=== PATIENT | female | born 1940 | race Caucasian/White ===

== ENCOUNTER 2021-01-10 09:48 | Outpatient (CLI) | payer MEDICARE, SELFPAY ==
--- NOTE | ~2021-01-10 | XR_ITS ---
XR shoulder RT min 2V 01/10/2021 10:09 Indication: Right shoulder pain Procedure: 4 views right shoulder Comparison: No prior studies for comparison. Findings: No fracture, subluxation or dislocation. There is anatomic alignment. Visualized lung paren chyma unremarkable. No soft tissue abnormality. No foreign bodies. Impression: 1: No significant bone or joint abnormality. Reviewed, dictated and finalized at location B. Impression: 1: No significant bone or joint abnormality.
== END 2021-01-10 09:49 | disposition home or self-care (01) ==
LOC: ANHIMG 09:54
DX: M79.601 Pain in right arm (principal)
CPT/HCPCS: 73030

== ENCOUNTER 2021-03-04 15:00 | Outpatient (RCR) | payer MEDICARE, SELFPAY ==
--- NOTE | 2020-12-26 09:42 | OTOPEVAL ---
OCCUPATIONAL THERAPY INITIAL EVALUATION 12/26/20 Gail presents to outpatient OT with right shoulder pain and bilateral hand pain that appears to be from chronic arthritic changes. She is very guarded with right shoulder ROM and a rotator cuff injury should not be ruled out at this time. 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 Skilled OT indicated for instruction in HEP, education in joint protection and body mechanics, modalities for pain, functional splinting, and strengthening to facilitate optimal functional use of bilateral hands/right shoulder. Thank you for referring Gail Oakes to [facility].? The patient is scheduled to be seen for therapy? 2x/week for 4 weeks. Please review, sign, date and return this plan of care ABELARDO. I agree with and certify that the following plan of care is medically necessary. Referring Physician Date Referring Provider: Vernell Hilliard MD *OT Outpatient Evaluation Start: 12/26/20 08:36 Freq: Status: Active Protocol: Document 12/26/20 08:36 ALBA (Rec: 12/26/20 09:41 ALBA [id number]) Therapy Assessment Status Assessment Status Assessment Status Evaluation Outpatient Past Medical History Past Medical History Source of Past Medical History Patient Neurological History Hx Neurological Disorders No Significant History Cardiovascular History Hx Other Cardiac Disorders Yes: Mitral valve disorder Respiratory History Hx Respiratory Disorders No Significant History Gastrointestinal History Hx Appendectomy Yes Hx Gall Bladder Disease Yes: Gall bladder removed Hx Gastroesophageal Reflux Disease Yes Genitourinary History Hx Genitourinary Disorders No Significant History Musculoskeletal History Hx Arthritis Yes Hx Osteoporosis Yes Hematological History Hx Hematological Disorders No Significant History Endocrine History Hx Other Endocrine Disorders Yes: pre-diabetic Evaluation Information Problem Diagnosis Bilateral hand pain, chronic right shoulder pain Subjective Information Patient states her right hand Query Text:As Reported By Patient/ is worse than the left. She Family has ulnar drift of the MCP joints. She reports difficulty picking up items and frequently dropping items. She reports generalized weakness in the hands. The pain in her right hand intermittently radiates up to the shoulder. She takes Tylenol for the pain PRN. Diagnostic Tests X-Rays For This Problem No MRI For This Problem No Other Tests For This Problem No Prior Level of Function Activity Level (Last 3 Months) Hand Do
--- NOTE | 2021-01-25 11:22 | OTOPEVAL ---
OCCUPATIONAL THERAPY RE-EVALUATION AND PROGRESS REPORT 01/25/21 Gail presents today for OT re-evaluation following 4 weeks of OT for right shoulder pain and bilateral hand pain. Improvements have been noted with all therapy goals - patient is having less pain, improved ROM, and improved strength which has carried over into improved daily function. 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 Thank you for referring Gail Oakes to [facility].? The patient is scheduled to be seen for continued occupational therapy? 2x/week for 4 weeks. Please review, sign, date and return this plan of care ABELARDO. I agree with and certify that the following plan of care is medically necessary. Referring Physician Date Referring Provider: Vernell Hilliard MD *OT Outpatient Re-Evaluation Start: 12/26/20 08:36 Re-Evaluation Information Problem Diagnosis Bilateral hand pain, chronic right shoulder pain Additional Evaluation Detail Gail has participated in 8 outpatient OT sessions for right shoulder pain and bilateral hand pain. X-ray of the shoulder was negative for any osseus abnormality. Treatment for the shoulder has been for signs and symptoms of subacromial impingement. She is motivated and very compliant with all materials. Subjective Information Patient states that her right Query Text:As Reported By Patient/ shoulder continues to be Family painful with use and that she has days where the shoulder doesn't hurt at all. Yesterday she washed her windows and today she is sore, pointing to the lateral aspect of the upper arm. For the first time in a few months she was able to reach behind her back and unhook her bra. She states that she is able to use the right hand to help was her hair about 50% of the time . She has been wearing a neoprene ulnar drift brace that was custom fabricated for about 3 weeks. She reports improved function with the hand when the brace is donne
--- NOTE | 2021-02-22 13:37 | OTOPEVAL ---
OCCUPATIONAL THERAPY RE-EVALUATION AND PROGRESS REPORT 02/22/2021 Gail presents today for OT re-evaluation following an additional 4 weeks of OT (8 weeks total) for right shoulder pain and bilateral hand pain. Improvements have been noted with all therapy goals - patient is having less pain, improved ROM, and improved strength which has carried over into improved daily function, speficially with washing hair and doffing her bra. 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 Thank you for referring Gail Oakes to [facility].? The patient is scheduled to be seen for continued occupational therapy? 2x/week for 4 weeks. Please review, sign, date and return this plan of care ABELARDO. I agree with and certify that the following plan of care is medically necessary. Referring Physician Date Referring Provider: Vernell Hilliard MD *OT Outpatient Evaluation Evaluation Information Problem Diagnosis Bilateral hand pain, chronic right shoulder pain Additional Evaluation Detail Gail has participated in 14 outpatient OT sessions for right shoulder pain and bilateral hand pain. X-ray of the shoulder was negative for any osseus abnormality. The last few weeks have been spent on working on shoulder strengthening and mechanics for treatment of subacromial impingement. She is motivated and very compliant with all materials. Subjective Information Patient states that there are Query Text:As Reported By Patient/ days that she has no shoulder Family pain. States that when she does have pain she is able to change her body mechanics in the shoulder to make the pain return back to 0/10. She does report a instance of sharp increase in shoulder pain when vacuuming a thick area rug. She states that the pain had already subsided by the next morning (compared to being in pain for several days). She also reports no longer having shoulder pain due to her bra strap or tight clothing. She is also now able to hook/
--- NOTE | 2021-03-04 15:35 | PCOTNOTE ---
OCCUPATIONAL THERAPY DISCHARGE NOTE 03/04/21 Patient:Gail Oakes Date of :1940 Gail presents today stating that she would like to wrap up with therapy. She states that her shoulder has improved a lot and that she would like to conserve the rest of her insurance's therapy visits in case she needs more therapy later this year. She would like to see how much better the shoulder can get on her own with time and exercising at home. She is independent with all materials. Please refer to the progress report from 02/22/21 for the most recent therapy updates. The goals have been partially met. Thank you for referring this patient to [facility]. Please review, sign, date and return this discharge summary ABELARDO. I have been updated about the patient's current status and I agree with discharge from the above service at this time. Referring Physician Date Referring Physician: Vernell Hilliard MD
== END 2021-03-05 14:30 | disposition home or self-care (01) ==
LOC: ANHOT 15:00
DX: M79.641 Pain in right hand (principal); M79.642 Pain in left hand; M25.511 Pain in right shoulder; G89.29 Other chronic pain
CPT/HCPCS: 97018; 97035; 97110; 97140; 97165; 97166; L3921

== ENCOUNTER 2022-06-03 17:06 | Emergency (ER) | payer MEDICARE, SELFPAY ==
[2022-06-03 17:13] VITALS: BP 160/66; PULSE 76; RESP 16; TEMP 36.9; O2SAT 99
--- NOTE | 2022-06-03 17:13 | ED.URI ---
HPI - URI/Sore Throat General Chief Complaint: Upper Respiratory Infection Stated Complaint: COUGH/CONGESTION Time Seen by Provider: 06/03/22 17:13 Source: patient and RN notes reviewed History of Present Illness HPI Narrative: Patient is an 81-year-old female who presents to the Urgent Care with complaints of sinus congestion and cough for 1 week. Patient denies any fevers, nausea, vomiting, shortness of breath or chest discomfort. Patient states that ?she normally gets this every year and gets a Z-Vinod from her doctor but she has not had time to drive to [place] to see her doctor. Patient has been using Mucinex, Robitussin, Flonase, saline spray. No other acute complaints. No acute distress noted. Patient aware of the plan of care. Some parts of this dictation were generated by voice recognition software and may contain typographical and/or grammatical inaccuracies. Related Data Home Medications Medication Instructions Recorded Confirmed fluticasone propionate 50 intranasal 06/03/22 mcg/actuation nasal spray,suspension montelukast 10 mg tablet mg 06/03/22 pantoprazole 40 mg tablet,delayed mg PO 06/03/22 release Allergies Allergy/AdvReac Type Severity Reaction Status Date / Time amoxicillin [From Augmentin] Allergy Rash Verified 06/03/22 17:11 clavulanic acid Allergy Rash Verified 06/03/22 17:11 [From Augmentin] codeine Allergy Rash Verified 06/03/22 17:11 Review of Systems Review of Systems: CONSTITUTIONAL: Denies fever, chills, or sweats. EYES: Denies visual changes, redness, or discharge. ENT: Reports of sinus congestion/pressure, rhinorrhea CARDIOVASCULAR: Denies chest pain, palpitations, or edema. RESPIRATORY: Reports cough without dyspnea GASTROINTESTINAL: Denies abdominal pain, nausea, vomiting, or diarrhea. GENITOURINARY: Denies dysuria or hematuria. SKIN: Denies rash or itching. MUSCULOSKELETAL: Denies back pain, joint pain, or myalgia. NEUROLOGIC: Denies headache, numbness, or weakness. All other systems reviewed are negative, except as documented in HPI. PMFSH Comments At the time of my signature, I reviewed and agree with the nursing past medical, surgical, social, and family history. There is no relevant family history pertinent to the patient complaint. Exam Narrative: GENERAL: This is a well-nourished, well-developed patient, in no apparent distress. HEAD: normocephalic, atraumatic. EYES: PERRL. Sclera clear/white. Vision is grossly intact. EARS: External ears normal, auditory canals clear and without drainage, TMs normal without perforation. Hearing grossly intact. NOSE: External nose normal with no obvious nasal discharge, nares without redness, clear rhinorrhea. THROAT: Mucous membranes moist, posterior pharynx clear. Moderate postnasal drainage NECK: Neck supple, non-tender without lymphadenopathy, masses or thyromegaly. CARDIOVASCULAR: Regular rate and rhythm RESPIRATORY: Notable cough on exam. Clear to auscultation. Breath sounds equal bilaterally. No wheezes, rales, or rhonchi. SKIN: warm, intact with no suspicious lesions or rash, good texture and turgor. NEURO: awake, alert, and oriented to person, place and time. There were no obvious focal neurologic abnormalities. EXTREMITIES: No clubbing, cyanosis, or edema. Course Course Level of Care: Express Care Visit Vital Signs Vital signs: Vital Signs Temperature 98.4 F 06/03/22 17:13 Pulse Rate 76 06/03/22 17:13 Respiratory Rate 16 06/03/22 17:13 Blood Pressure 160/66 H 06/03/22 17:13 Pulse Oximetry 99 06/03/22 17:13 Oxygen Delivery Room Air 06/03/22 17:13 Temperature 98.4 F 06/03/22 17:13 Pulse Rate 76 06/03/22 17:13 Respiratory Rate 16 06/03/22 17:13 Blood Pressure 160/66 H 06/03/22 17:13 Pulse Oximetry 99 06/03/22 17:13 Oxygen Delivery Room Air 06/03/22 17:13 Reviewed- Patient is informed that they may have pre-hypertension or hypertension based on a blood pre
== END 2022-06-03 17:32 | disposition home or self-care (01) ==
PROVIDERS: Emergency Provider Nurse Practitioner Family
DX: J32.9 Chronic sinusitis, unspecified (principal)
CPT/HCPCS: 99213; G0463